=== PATIENT | female | born 1965 | race Caucasian/White ===

== ENCOUNTER → 2023-11-22 08:42 | Outpatient (REF) | payer OTHER, SELFPAY ==
[2023-11-22 12:24] LABS: % Basophils 0.8 % (0-2); % Immature Granulocytes 0.2 % (0-0.5); % Lymphocytes 39.5 % (20.5-51.1); % Monocytes 9.3 % (1.7-9.3); % Neutrophils 49.2 % (42.2-75.2); Absolute Eosinophils 0.1 10^3/uL (0-0.7); Absolute Lymphocytes 1.9 10^3/uL (1.2-3.4); Absolute Monocytes 0.5 10^3/uL (0.1-0.6); Absolute Neutrophils 2.4 10^3/uL (1.4-6.5); Hematocrit 39.9 % (37.0-47.0); Hemoglobin 13.7 g/dL (12.0-16.0); Mean Corp Hgb Conc. 34.3 g/dL (33.0-37.0); Mean Corpuscular Hgb 30.6 pg (27.0-31.0); Mean Corpuscular Volume 89.3 fL (81.0-99.0); Mean Platelet Volume 9.8 fL (7.4-10.4); Nucleated Red Blood Cells % 0 %; Platelet Count 271 10^3/uL (130-400); Red Blood Cell Count 4.47 10^6/uL (4.20-5.40); Red Cell Dist. Width 12.5 % (11.5-14.5); White Blood Cell Count 4.8 10^3/uL (4.8-10.8)
[2023-11-22 12:31] LABS: ALT (SGPT) 12 U/L (0-35); AST (SGOT) 26 U/L (14-36); Albumin 4.5 g/dl (3.5-5.0); Alkaline Phosphatase 52 U/L (38-126); Blood Urea Nitrogen 17 mg/dl (7-17); Calcium 9.8 mg/dl (8.4-10.2); Carbon Dioxide 26 mmol/L (22-30); Chloride 106 mmol/L (98-107); Glucose 92 mg/dl (70-99); HDL Cholesterol 94 mg/dl; LDL Cholesterol, Calculated 143 mg/dl; Potassium 4.1 mmol/L (3.5-5.1); Sodium 139 mmol/L (135-145); Total Bilirubin 1.5 mg/dl (0.2-1.3); Total Cholesterol 247 mg/dl (50-199); Total Protein 7.3 g/dl (6.3-8.2); Triglyceride 53 mg/dl (10-149); Very Low Density Lipoprotein 10 mg/dl (0-30); eGFR > 60.00
[2023-11-22 13:01] LABS: TSH Reflex To Free T4 0.72 uIU/ml (0.47-4.68)
== END ==
LOC: HWLAB 08:42
PROVIDERS: ATTENDING PHYSICIAN Nurse Practitioner
DX: Z00.01 Encounter for general adult medical examination with abnormal findings (principal)
CPT/HCPCS: 36415; 80053; 80061; 84443; 85025

== ENCOUNTER → 2023-12-29 07:03 | Outpatient (REF) | payer OTHER, SELFPAY ==
[2023-12-31 06:50] LABS: HBV Quant by NAAT IU/mL Not Detected; HBV Quant by NAAT Interp Not Detected (Not Detected); HBV Quant by NAAT Log IU/mL Not Detected log IU/mL
== END ==
LOC: WDC 07:03
PROVIDERS: Internal Medicine; ATTENDING PHYSICIAN Nurse Practitioner
DX: K75.9 Inflammatory liver disease, unspecified (principal); L40.50 Arthropathic psoriasis, unspecified; Z51.81 Encounter for therapeutic drug level monitoring; Z12.31 Encounter for screening mammogram for malignant neoplasm of breast
CPT/HCPCS: 36415; 77063; 77067; 87517

== ENCOUNTER → 2024-02-21 07:22 | Outpatient (REF) | payer OTHER, SELFPAY ==
[2024-02-21 09:46] LABS: % Eosinophils 1.9 % (0-6); % Immature Granulocytes 0.4 % (0-0.5); % Lymphocytes 38.6 % (20.5-51.1); % Monocytes 9.1 % (1.7-9.3); Absolute Basophils 0.1 10^3/uL (0-0.2); Absolute Eosinophils 0.1 10^3/uL (0-0.7); Absolute Monocytes 0.5 10^3/uL (0.1-0.6); Absolute Neutrophils 2.5 10^3/uL (1.4-6.5); Hematocrit 41.3 % (37.0-47.0); Hemoglobin 14.1 g/dL (12.0-16.0); Mean Corp Hgb Conc. 34.1 g/dL (33.0-37.0); Mean Corpuscular Hgb 30.9 pg (27.0-31.0); Mean Corpuscular Volume 90.4 fL (81.0-99.0); Mean Platelet Volume 9.4 fL (7.4-10.4); Nucleated Red Blood Cells % 0 %; Platelet Count 276 10^3/uL (130-400); Red Blood Cell Count 4.57 10^6/uL (4.20-5.40); White Blood Cell Count 5.2 10^3/uL (4.8-10.8)
[2024-02-21 10:16] LABS: ALT (SGPT) 20 U/L (0-35); AST (SGOT) 23 U/L (14-36); Albumin 4.6 g/dl (3.5-5.0); Alkaline Phosphatase 48 U/L (38-126); Blood Urea Nitrogen 23 mg/dl (7-17); Calcium 9.8 mg/dl (8.4-10.2); Carbon Dioxide 22 mmol/L (22-30); Chloride 105 mmol/L (98-107); Glucose 94 mg/dl (70-99); Potassium 4.4 mmol/L (3.5-5.1); Sodium 142 mmol/L (135-145); Total Bilirubin 1.5 mg/dl (0.2-1.3); Total Protein 7.1 g/dl (6.3-8.2); eGFR > 60.00
[2024-02-21 10:19] LABS: C-Reactive Protein < 5.00 mg/L (0.0-10.00)
[2024-02-21 10:32] LABS: Erythrocyte Sed Rate 14 mm/hour (0-20)
== END ==
LOC: HWRAD 07:22
PROVIDERS: ATTENDING PHYSICIAN Internal Medicine Gastroenterology; FAMILY PHYSICIAN Nurse Practitioner; REFERRING PHYSICIAN Internal Medicine
DX: K82.4 Cholesterolosis of gallbladder (principal); K76.89 Other specified diseases of liver; M08.80 Other juvenile arthritis, unspecified site; M25.60 Stiffness of unspecified joint, not elsewhere classified; M45.8 Ankylosing spondylitis sacral and sacrococcygeal region; Z51.81 Encounter for therapeutic drug level monitoring
CPT/HCPCS: 36415; 76700; 80053; 85025; 85652; 86140

== ENCOUNTER 2024-04-22 18:40 | Emergency (ER) | payer OTHER, SELFPAY ==
[2024-04-22 18:45] VITALS: BP 119/76
[2024-04-22 19:55] VITALS: BMI 26.1
[2024-04-22] MEDS: DECADRON 10 MG IV (20:32)
[2024-04-22] MEDS: PERCOCET 5/325 1 TABLET PO (20:32)
[2024-04-22] MEDS: TORADOL 15 MG IV (20:33)
[2024-04-22] MEDS: VALIUM INJECTION 2 MG IV (20:33)
[2024-04-22 20:44] VITALS: BP 102/59
[2024-04-22 21:00] VITALS: BP 95/63
[2024-04-22 22:00] VITALS: BP 99/61
--- NOTE | 2024-04-22 22:28 | ED.GENMED ---
History of Present Illness
General
Chief Complaint: Back Pain
Source: patient and spouse
Exam Limitations: none
Time Seen by Provider: 04/22/24 19:15
Nursing documentation reviewed up to this point in time: agreed with
History of Present Illness
History of Present Illness:
Patient with history of chronic lower back pain with the past 5 years, requiring multiple injections and evaluation by various specialist, including pain management, hotel valet attendant, and orthopedic surgeon, presents to ED secondary to worsening right
lower back pain rating down her right leg after receiving her most recent epidural injection. Patient has been taking meloxicam and Tylenol, with minimal relief in symptoms. Denies fever or chills. Denies urinary or bowel incontinence. Denies
loss of sensation or weakness. Denies difficulty with ambulation. Patient has an appointment with new supervisor paint in 2 days.
Past History
Past History
ED Past Medical History: GERD and Other (Ovarian cysts, uterine fibroids)
ED Past Surgical History: Other (Sinus surgery)
Social History
Tobacco: Non-smoker
Alcohol: None
Drug: None
Personal:
Living: with family
Employment: Employed
Family History
Family History: Other (Noncontributory)
Review of Systems
Review of Systems
Allergies reviewed?: Yes
All Other Systems: ROS reviewed and negative except as documented in HPI and ROS
Constitutional: Reports no symptoms
ABD/GI: Reports no symptoms; Denies nausea or vomiting
: Reports no symptoms; Denies incontinence
Musculoskeletal: Reports back pain
Skin: Reports no symptoms
Neurological: Denies weakness
Phy Exam
Physical Exam
Physical Exam:
Physical Exam
General: moderate painful distress, not acutely ill. afebrile
Head: nc/at. eomi
Neck: supple. normal range of motion
Abdomen: normal bowel sounds. not tender.
Back: no midline tenderness. mild right lower back tenderness to palpation at level of L3-4. negative straight leg raise test.
Neuro: alert and oriented. no focal neurological deficits
Skin: no rash
Psychiatric: well kept. interactive and cooperative
Extremities: no edema. no calf tenderness.
Course
Orders/Labs/Results
Orders:
Orders
04/22/24 20:20
Dexamethasone Sod Phosphate [Decadron] 10 mg IV NOW STA
Ketorolac [Toradol] 15 mg IV NOW STA
Oxycodone/Acetaminophen [Percocet 5/325] 1 tablet PO NOW STA
diazePAM [Valium Injection] 2 mg IV NOW STA
Vital Signs
Initial and Last Documented VS:
Initial Vital Signs
Temp Pulse Resp BP Pulse Ox
98.2 F 93 16 119/76 97
04/22/24 18:45 04/22/24 18:45 04/22/24 18:45 04/22/24 18:45 04/22/24 18:45
Last Documented Vital Signs
Temp Pulse Resp BP Pulse Ox
98.2 F 73 18 99/61 98
04/22/24 18:45 04/22/24 22:45 04/22/24 22:45 04/22/24 22:00 04/22/24 22:45
MDM/Problems Addressed
MDM/Problems Addressed:
History and exam consistent with an acute exacerbation of underlying disc disease. Reviewed lumbar spine MRI from 2023, which revealed herniated disc. Otherwise, patient is afebrile, hemodynamically stable, and neurologically intact, without any
exam findings concerning for cauda equina syndrome. Patient reports significant improvement in symptoms after treatment. At this time, patient feels comfortable going home supervisor paint follow-up in 2 days. Patient will be provided
with short course of Valium/Percocet, to be used as needed for pain control. Patient does understand that she is not to take Valium and Percocet at the same time.
*Critical Care Note
Total Time (30-74mins, 75-104mins- exclusive of procedures): Not Applicable
ED Attending Note
-
Portions of this chart may have been created with voice recognition software.� Occasional wrong word or��sound alike� substitutions may have occurred due to the inherent limitations of voice recognition software.
Discharge Plan
Departure
Patient Disposition: Home (Routine Discharge)
Date of Disposition: 04/22/24
Time of Disposition: 22:28
Patient with high blood pressure during this ER visit?: No
Condition: Good
Discharge Problem:
Back pain
Instructions: Low Back Pain (DC)
Prescriptions:
New
diazepam [Valium] 2 mg tablet
2 mg PO TID PRN (Reason: muscle spasm) Qty: 10 0RF
oxycodone-acetaminophen [Percocet] 5-325 mg Tablet
1 tab PO Q6HPRN PRN (Reason: pain) Qty: 10 0RF
No Action
esomeprazole magnesium [Nexium] 40 MG capsule,delayed release(DR/EC)
20 mg PO DAILY
amitriptyline 10 MG tablet
20 mg PO DAILY
famotidine 20 mg tablet
20 mg PO BID Qty: 7 0RF
cetirizine [Zyrtec] 10 mg tablet
10 mg PO BID 4 Days Qty: 8 0RF
epinephrine [EpiPen 2-Berny] 0.3 mg/0.3 mL auto-injector
0.3 mg IM Q5-15M PRN (Reason: anaphylaxis) Qty: 2 0RF
quetiapine 25 mg Tablet
25 mg PO HS
meloxicam 15 mg Tablet
15 mg PO DAILY PRN (Reason: pain )
esomeprazole magnesium 40 mg Capsule,Delayed Release(Dr/Ec)
40 mg PO HS
Gemtesa 75 mg Tablet
75 mg PO DAILY
Referrals:
Mary Kay Hayes MD [Family Provider] -
Activity Restrictions/Additional Instructions:
As discussed, please follow-up with your supervisor paint, as scheduled, on Wednesday for reevaluation. Your prescriptions have been sent electronically to [facility] pharmacy in [place].
Interventions
Interventions:
*Risk Screen - Suicide Last Done: 04/22/24 18:45
*General Assessment Last Done: 04/22/24 18:45
*Neglect/Abuse Screening Last Done: 04/22/24 19:56
ED- Fall Risk Assessment Last Done: 04/22/24 19:56
*ED COVID-19 Vaccine History Last Done: 04/22/24 18:45
*Nursing Disposition Last Done: 04/22/24 22:45
ED-Musculoskeletal Assessment Last Done: 04/22/24 19:56
Discharge Date and Time
Discharge Date/Time: 04/22/24 22:45
Print Language: KINYARWANDA
== END 2024-04-22 22:45 | disposition home or self-care (01) ==
LOC: EMR 18:40
PROVIDERS: EMERGENCY PHYSICIAN Emergency Medicine; FAMILY PHYSICIAN Internal Medicine
DX: M54.9 Dorsalgia, unspecified (principal); K21.9 Gastro-esophageal reflux disease without esophagitis; D25.9 Leiomyoma of uterus, unspecified
CPT/HCPCS: 99282; 96374; 96375

== ENCOUNTER → 2024-05-10 07:51 | Outpatient (REF) | payer OTHER, SELFPAY | LOC: WDC 07:51 | PROVIDERS: ATTENDING PHYSICIAN Nurse Practitioner | DX: R92.2 Inconclusive mammogram (principal) | CPT/HCPCS: 76641 ==

== ENCOUNTER → 2024-07-03 09:20 | Outpatient (REF) | payer OTHER, SELFPAY ==
[2024-07-03 11:14] LABS: % Basophils 0.8 % (0-2); % Eosinophils 1.4 % (0-6); % Immature Granulocytes 0.2 % (0-0.5); % Lymphocytes 39.8 % (20.5-51.1); % Monocytes 9.1 % (1.7-9.3); % Neutrophils 48.7 % (42.2-75.2); Absolute Eosinophils 0.1 10^3/uL (0-0.7); Absolute Monocytes 0.5 10^3/uL (0.1-0.6); Absolute Neutrophils 2.4 10^3/uL (1.4-6.5); Hematocrit 40.9 % (37.0-47.0); Hemoglobin 13.6 g/dL (12.0-16.0); Mean Corp Hgb Conc. 33.3 g/dL (33.0-37.0); Mean Corpuscular Hgb 30.1 pg (27.0-31.0); Mean Corpuscular Volume 90.5 fL (81.0-99.0); Mean Platelet Volume 9.7 fL (7.4-10.4); Nucleated Red Blood Cells % 0 %; Platelet Count 278 10^3/uL (130-400); Red Blood Cell Count 4.52 10^6/uL (4.20-5.40); Red Cell Dist. Width 11.9 % (11.5-14.5)
[2024-07-03 12:12] LABS: ALT (SGPT) 14 U/L (0-35); AST (SGOT) 22 U/L (14-36); Albumin 4.5 g/dl (3.5-5.0); Alkaline Phosphatase 50 U/L (38-126); Blood Urea Nitrogen 21 mg/dl (7-17); Calcium 9.7 mg/dl (8.4-10.2); Carbon Dioxide 29 mmol/L (22-30); Chloride 103 mmol/L (98-107); Glucose 86 mg/dl (70-99); HDL Cholesterol 77 mg/dl; LDL Cholesterol, Calculated 140 mg/dl; Potassium 4.5 mmol/L (3.5-5.1); Sodium 139 mmol/L (135-145); Total Bilirubin 1.2 mg/dl (0.2-1.3); Total Cholesterol 228 mg/dl (50-199); Triglyceride 56 mg/dl (10-149); Very Low Density Lipoprotein 11 mg/dl (0-30); eGFR > 60.00
[2024-07-03 12:47] LABS: TSH Reflex To Free T4 0.71 uIU/ml (0.47-4.68)
== END ==
LOC: HWLAB 09:20
DX: E78.2 Mixed hyperlipidemia (principal); N28.9 Disorder of kidney and ureter, unspecified; N30.10 Interstitial cystitis (chronic) without hematuria; K82.4 Cholesterolosis of gallbladder; K76.89 Other specified diseases of liver
CPT/HCPCS: 36415; 80053; 80061; 84443; 85025

== ENCOUNTER 2024-09-10 09:58 | Emergency (ER) | payer OTHER, SELFPAY ==
[2024-09-10 10:00] VITALS: BP 130/78
--- NOTE | 2024-09-10 10:42 | ED.GENMED ---
History of Present Illness
General
Chief Complaint: Fall
Source: patient
Exam Limitations: none
Time Seen by Provider: 09/10/24 10:12
History of Present Illness
History of Present Illness:
59yoF with a history of migraines, GERD, and chronic back pain presenting for evaluation after a fall around 9:30 AM this morning. Patient was standing on a chair getting something from the cupboard when the chair leg broke. She fell and struck
her upper abdomen/lower rib area against the edge of the chair. There was no head strike or loss of consciousness. Patient is presenting with rib pain as well as upper abdominal pain. She spoke with her friend who works at urgent care and she was
told to go to the ED to rule out internal bleeding. No shortness of breath. She does not take any blood thinners.
Past History
Past History
ED Past Medical History: GERD and Other (Ovarian cysts, uterine fibroids)
ED Past Surgical History: Other (Sinus surgery)
Social History
Tobacco: Non-smoker
Alcohol: None
Drug: None
Personal:
Living: with family
Employment: Employed
Family History
Family History: Other (Noncontributory)
Phy Exam
General Physical Exam
General Presentation: well appearing and no apparent distress
General age: appears stated age
General Skin: warm and dry
General Habitus: normal
General Mental: alert
ENT Exam
ENT Exam: normocephalic
Cardiovascular Exam
Cardiovascular Exam: regular rate/rhythm
Pulmonary Exam
Pulmonary Exam: lungs clear, no respiratory distress, no rales, no crackles, no rhonchi, no wheezing and other
Gastrointestinal Exam
Gastrointestinal Exam: soft, non distended and other (+Tenderness in anterior lower ribcage bilaterally and epigastric region. No ecchymosis, skin changes, or crepitus. )
Neurological Exam
Neurological Exam: alert
[place] Coma Scale
Eye Opening: Spontaneous
Verbal Response: Oriented
Motor Response: Obeys Commands
GCS Total Score: 15
Musculoskeletal Exam
Musculoskeletal Exam: other (L knee: Small developing contusion to anterior knee. ROM intact. )
Skin Exam
Skin Exam: normal color and warm/dry
Psychiatric Exam
Psychiatric Exam: normal mood/affect
Course
Orders/Labs/Results
Orders:
Orders
09/10/24 10:33
CT Abd/pelvis W Iv Cont Urgent
Comment:
Reason For Exam: Upper abd pain/lower rib pain s/p fall
Acetaminophen [Tylenol] 1,000 mg PO NOW STA
CR Chest - 2 Views Urgent
Comment:
Reason For Exam: lower rib pain s/p fall
CR Knee - Left 4 Or More View* Urgent
Comment:
Reason For Exam: injury
09/10/24 10:40
Complete Blood Count/With Diff Urgent
Comprehensive Metabolic Panel Urgent
09/10/24 11:14
Acetaminophen [Tylenol] 1,000 mg .ROUTE .STK-MED ONE
Abnormal Lab Results
09/10/24
10:40
Monocytes % 10.0 H %
(1.7-9.3)
BUN 29 H mg/dl
(7-17)
09/10/24 10:40
09/10/24 10:40
Vital Signs
Initial and Last Documented VS:
Initial Vital Signs
Temp Pulse Resp BP Pulse Ox
97.5 F 92 16 130/78 98
09/10/24 10:00 09/10/24 10:00 09/10/24 10:00 09/10/24 10:00 09/10/24 10:00
Last Documented Vital Signs
Temp Pulse Resp BP Pulse Ox
97.5 F 92 16 130/78 98
09/10/24 10:00 09/10/24 10:00 09/10/24 10:00 09/10/24 10:00 09/10/24 10:00
MDM/Problems Addressed
Differential Diagnosis Includes:
59yoF here with lower rib/upper abd pain after falling off a chair shortly prior to arrival. VSS. Patient is well-appearing no acute distress. There is tenderness on exam without ecchymosis or crepitus. Breath sounds equal bilaterally.
Differential diagnosis includes but is not limited to: Contusion, soft tissue injury, fracture, liver laceration
Initial ED plan: Check basic labs, CXR, L knee x-rays, and CT abdomen. Tylenol for pain.
*Critical Care Note
Total Time (30-74mins, 75-104mins- exclusive of procedures): Not Applicable
Update Note
Update Note:
Labs unremarkable. Imaging is negative for traumatic injuries. Scattered hepatic cysts noted on CT. Patient has a known history of this and follows with gastroenterology. She was given a copy of the radiology report. Supportive care discussed.
Advised follow-up with PCP and ED return precautions reviewed. Patient in agreement with plan and was discharged in stable condition.
ED Attending Note
-
Portions of this chart may have been created with voice recognition software.� Occasional wrong word or��sound alike� substitutions may have occurred due to the inherent limitations of voice recognition software.
Discharge Plan
Departure
Patient Disposition: Home (Routine Discharge)
Date of Disposition: 09/10/24
Time of Disposition: 13:50
Patient with high blood pressure during this ER visit?: No
Discharge Problem:
Traumatic injury of rib, Accidental fall from chair
Instructions: Rib injury in adults
Prescriptions:
No Action
esomeprazole magnesium [Nexium] 40 MG capsule,delayed release(DR/EC)
20 mg PO DAILY
amitriptyline 10 MG tablet
20 mg PO DAILY
famotidine 20 mg tablet
20 mg PO BID Qty: 7 0RF
cetirizine [Zyrtec] 10 mg tablet
10 mg PO BID 4 Days Qty: 8 0RF
epinephrine [EpiPen 2-Berny] 0.3 mg/0.3 mL auto-injector
0.3 mg IM Q5-15M PRN (Reason: anaphylaxis) Qty: 2 0RF
quetiapine 25 mg Tablet
25 mg PO HS
meloxicam 15 mg Tablet
15 mg PO DAILY PRN (Reason: pain )
esomeprazole magnesium 40 mg Capsule,Delayed Release(Dr/Ec)
40 mg PO HS
Gemtesa 75 mg Tablet
75 mg PO DAILY
diazepam [Valium] 2 mg tablet
2 mg PO TID PRN (Reason: muscle spasm) Qty: 10 0RF
oxycodone-acetaminophen [Percocet] 5-325 mg Tablet
1 tab PO Q6HPRN PRN (Reason: pain) Qty: 10 0RF
Referrals:
Wilber Hector CRNP [Family Provider] -
Activity Restrictions/Additional Instructions:
Your imaging was negative for any injuries.
Apply ice to affected area. Take Tylenol and ibuprofen for pain.
Please follow-up with your family doctor. Return to the ER with any new or worsening symptoms.
Interventions
Interventions:
*Risk Screen - Suicide Last Done: 09/10/24 10:00
*General Assessment Last Done: 09/10/24 14:10
*Neglect/Abuse Screening Last Done: 09/10/24 10:00
*ED- Fall Risk Assessment Last Done: 09/10/24 14:10
*ED COVID-19 Vaccine History Last Done: 09/10/24 14:10
*Nursing Disposition Last Done: 09/10/24 14:10
ED-Musculoskeletal Assessment Last Done: 09/10/24 14:39
ED- Neurological Assessment Last Done: 09/10/24 14:39
ED-Skin Assessment Last Done: 09/10/24 14:39
Discharge Date and Time
Discharge Date/Time: 09/10/24 14:40
Print Language: MALTESE
[2024-09-10 10:44] LABS: % Basophils 0.9 % (0-2); % Eosinophils 1.8 % (0-6); % Immature Granulocytes 0.2 % (0-0.5); % Lymphocytes 33.9 % (20.5-51.1); % Neutrophils 53.2 % (42.2-75.2); Absolute Basophils 0.1 10^3/uL (0-0.2); Absolute Eosinophils 0.1 10^3/uL (0-0.7); Absolute Lymphocytes 1.9 10^3/uL (1.2-3.4); Absolute Monocytes 0.6 10^3/uL (0.1-0.6); Absolute Neutrophils 2.9 10^3/uL (1.4-6.5); Hematocrit 39.9 % (37.0-47.0); Hemoglobin 13.7 g/dL (12.0-16.0); Mean Corp Hgb Conc. 34.3 g/dL (33.0-37.0); Mean Corpuscular Hgb 30.8 pg (27.0-31.0); Mean Corpuscular Volume 89.7 fL (81.0-99.0); Mean Platelet Volume 8.9 fL (7.4-10.4); Nucleated Red Blood Cells % 0 %; Platelet Count 250 10^3/uL (130-400); Red Blood Cell Count 4.45 10^6/uL (4.20-5.40); White Blood Cell Count 5.5 10^3/uL (4.8-10.8)
[2024-09-10 11:05] LABS: ALT (SGPT) 17 U/L (0-35); AST (SGOT) 22 U/L (14-36); Albumin 3.8 g/dl (3.5-5.0); Alkaline Phosphatase 49 U/L (38-126); Blood Urea Nitrogen 29 mg/dl (7-17); Calcium 9.4 mg/dl (8.4-10.2); Carbon Dioxide 26 mmol/L (22-30); Chloride 107 mmol/L (98-107); Glucose 90 mg/dl (70-99); Potassium 4.5 mmol/L (3.5-5.1); Sodium 140 mmol/L (135-145); Total Bilirubin 0.9 mg/dl (0.2-1.3); Total Protein 6.5 g/dl (6.3-8.2); eGFR > 60.00
[2024-09-10] MEDS: TYLENOL 1000 MG PO (11:15)
== END 2024-09-10 14:40 | disposition home or self-care (01) ==
LOC: EMR 09:58
PROVIDERS: Physician Assistant; EMERGENCY PHYSICIAN Emergency Medicine
DX: S29.9XXA Unspecified injury of thorax, initial encounter (principal); R10.10 Upper abdominal pain, unspecified; W22.8XXA Striking against or struck by other objects, initial encounter; K21.9 Gastro-esophageal reflux disease without esophagitis; G89.29 Other chronic pain; K76.89 Other specified diseases of liver
CPT/HCPCS: 99284; 71046; 73564; 74177; 80053; 85025; Q9967

== ENCOUNTER → 2024-09-22 08:55 | Outpatient (REF) | payer OTHER, SELFPAY ==
[2024-09-22 12:13] LABS: Vitamin D, 25-OH*** 41.7 ng/mL (30-80)
[2024-09-22 12:31] LABS: Ferritin 44.6 ng/ml (11.1-264.0)
== END ==
LOC: HWLAB 08:55
PROVIDERS: ATTENDING PHYSICIAN Dermatology MOHS-Micrographic Surgery
DX: Z79.899 Other long term (current) drug therapy (principal); L65.0 Telogen effluvium
CPT/HCPCS: 36415; 82306; 82728

== ENCOUNTER → 2024-12-29 07:00 | Outpatient (REF) | payer OTHER, SELFPAY | LOC: WDC 07:00 | PROVIDERS: ATTENDING PHYSICIAN Obstetrics & Gynecology | DX: Z12.31 Encounter for screening mammogram for malignant neoplasm of breast (principal) | CPT/HCPCS: 77063; 77067 ==

== ENCOUNTER → 2025-01-04 08:57 | Outpatient (REF) | payer OTHER, SELFPAY ==
[2025-01-04 13:04] LABS: Hematocrit 40.7 % (37.0-47.0); Hemoglobin 13.5 g/dL (12.0-16.0); Mean Corp Hgb Conc. 33.2 g/dL (33.0-37.0); Mean Corpuscular Volume 90.6 fL (81.0-99.0); Nucleated Red Blood Cells % 0 %; Platelet Count 271 10^3/uL (130-400); Red Cell Dist. Width 12.1 % (11.5-14.5)
[2025-01-04 13:30] LABS: ALT (SGPT) 17 U/L (0-35); AST (SGOT) 22 U/L (14-36); Albumin 4.6 g/dl (3.5-5.0); Alkaline Phosphatase 40 U/L (38-126); Blood Urea Nitrogen 18 mg/dl (7-17); Calcium 9.3 mg/dl (8.4-10.2); Carbon Dioxide 26 mmol/L (22-30); Chloride 106 mmol/L (98-107); Glucose 86 mg/dl (70-99); HDL Cholesterol 67 mg/dl; LDL Cholesterol, Calculated 129 mg/dl; Potassium 4.3 mmol/L (3.5-5.1); Sodium 140 mmol/L (135-145); Total Protein 7.2 g/dl (6.3-8.2); Very Low Density Lipoprotein 14 mg/dl (0-30); eGFR > 60.00
== END ==
LOC: HWRAD 08:57
DX: M79.671 Pain in right foot (principal); Z00.01 Encounter for general adult medical examination with abnormal findings
CPT/HCPCS: 36415; 73630; 80053; 80061; 84443; 85025

== ENCOUNTER 2025-03-08 06:21 | Day surgery (SDC) | payer OTHER, SELFPAY | END 2025-03-08 12:33 | disposition home or self-care (01) | LOC: GI 06:21 | PROVIDERS: ATTENDING PHYSICIAN Internal Medicine Gastroenterology | DX: Z12.11 Encounter for screening for malignant neoplasm of colon (principal); Z86.0100 Personal history of colon polyps, unspecified; K64.9 Unspecified hemorrhoids | CPT/HCPCS: G0105 ==

== ENCOUNTER → 2025-03-09 07:58 | Outpatient (REF) | payer OTHER, SELFPAY | LOC: RAD 07:58 | DX: Z78.0 Asymptomatic menopausal state (principal) | CPT/HCPCS: 77080 ==

== ENCOUNTER → 2025-03-23 07:34 | Outpatient (REF) | payer OTHER, SELFPAY | LOC: RAD 07:34 | PROVIDERS: ATTENDING PHYSICIAN Internal Medicine Gastroenterology | DX: K82.4 Cholesterolosis of gallbladder (principal); N28.9 Disorder of kidney and ureter, unspecified | CPT/HCPCS: 76700; 76775 ==

== ENCOUNTER 2025-04-10 06:36 | Day surgery (SDC) | payer OTHER, SELFPAY ==
[2025-04-10] VITALS (11 sets, daily range): BP systolic 93–115; BP diastolic 47–68; BMI 23.5
[2025-04-10] MEDS: NORMOSOL-R/PLASMALYTE-A 1000 IV (10:25)
[2025-04-10] MEDS: DILAUDID 0.5 MG IV (12:37)
[2025-04-10] MEDS: ZOFRAN 4 MG IV (14:01)
== END 2025-04-10 16:52 | disposition home or self-care (01) ==
LOC: SDS 06:36
PROVIDERS: ATTENDING PHYSICIAN Obstetrics & Gynecology
DX: N81.10 Cystocele, unspecified (principal); N81.6 Rectocele
CPT/HCPCS: 57260; J1580

== ENCOUNTER 2025-04-11 03:30 | Emergency (ER) | payer OTHER, SELFPAY ==
[2025-04-11 03:34] VITALS: BP 102/74
[2025-04-11 03:48] VITALS: BP 116/69
[2025-04-11 03:54] VITALS: BMI 23.4
[2025-04-11] MEDS: NSS 1000 IV (04:29)
--- NOTE | 2025-04-11 04:35 | ED.GENMED ---
History of Present Illness
General
Chief Complaint: Urinary Symptoms
Source: patient
Exam Limitations: none
Time Seen by Provider: 04/11/25 03:52
Nursing documentation reviewed up to this point in time: agreed with
History of Present Illness
History of Present Illness:
59-year-old female with a past medical history of GERD, ovarian cyst, interstitial cystitis, ureterovaginal pelvic prolapse presents to the ER today with concerns of difficulty with urinary flow from the catheter. Patient reports that she had
bladder surgery for bladder prolapse yesterday. She had a retropubic mid ureteral sling done with posterior colporrhaphy and perineoplasty. She reports that the catheter was draining well postprocedure and then she woke up early this morning with
a sensation to urinate. She reports that she looked in the bag was not draining. When she stood up, the bag started to drain. She reports that she has had some vaginal bleeding postprocedure but denies any blood in the urine. Patient also
describes an episode of lightheadedness occurring when she stood which is not unusual for her but felt like it was more prominent today. She denies chest pain or shortness of breath.
Past History
Past History
ED Past Medical History: GERD and Other (Ovarian cysts, uterine fibroids)
ED Past Surgical History: Other (Sinus surgery)
Social History
Tobacco: Non-smoker
Alcohol: None
Drug: None
Personal:
Living: with family
Employment: Employed
Family History
Family History: Other (Noncontributory)
Review of Systems
Review of Systems
All Other Systems: ROS reviewed and negative except as documented in HPI and ROS
Phy Exam
Physical Exam
Physical Exam:
General: Patient is well appearing and in no acute distress; non-toxic
Skin: Warm and dry, no rashes or lesions
Head: Normocephalic, atraumatic
Eyes: Sclera non-icteric. EOMs intact.
Cardiac: Regular rate and rhythm, no murmur
Peripheral Vascular: No lower extremity swelling or edema
Pulm: Normal respiratory effort, no wheezes, rales, or rhonchi
Abdomen: No abdominal tenderness to palpation
Genitourinary: Urinary catheter in place
Neuro: CN II-XII intact, no focal neurologic deficits.
Psychiatric: Appropriate mood and affect.
Course
Orders/Labs/Results
Orders:
Orders
04/11/25 04:06
Complete Blood Count/With Diff Urgent
Comprehensive Metabolic Panel Urgent
04/11/25 04:27
0.9% Sodium Chloride 1000 ml [Nss] 1,000 ml IV BOLUS
04/11/25 04:28
Electrocardiogram (*1) Urgent
Reason for Study: Fatigue / Weakness
04/11/25 05:12
Ketorolac [Toradol] 15 mg IV NOW STA
Abnormal Lab Results
04/11/25
04:06
Absolute Neuts (auto) 8.0 H 10^3/uL
(1.4-6.5)
Absolute Monos (auto) 0.9 H 10^3/uL
(0.1-0.6)
Lymphocytes % 14.4 L %
(20.5-51.1)
Sodium 131 L mmol/L
(135-145)
Glucose 114 H mg/dl
(70-99)
04/11/25 04:06
04/11/25 04:06
Vital Signs
Initial and Last Documented VS:
Initial Vital Signs
Temp Pulse Resp BP Pulse Ox
97.6 F 91 18 102/74 100
04/11/25 03:34 04/11/25 03:34 04/11/25 03:34 04/11/25 03:34 04/11/25 03:34
Last Documented Vital Signs
Temp Pulse Resp BP Pulse Ox
98.2 F 82 16 110/76 99
04/11/25 07:23 04/11/25 07:23 04/11/25 07:23 04/11/25 07:23 04/11/25 07:23
MDM/Problems Addressed
Differential Diagnosis Includes:
urinary catheter dysfunction
MDM/Problems Addressed:
59-year-old female presents to the ER today with concerns of issues with her urinary catheter. She had a recent surgery done for pelvic organ prolapse. This was uncomplicated. She reports that this evening there was a delay in drainage from the
catheter but the catheter seem to drain again when she stood. Patient is supposed to see Dr. Patel later today for voiding trial. I spoke to Dr. Patel he was okay with me taking out the catheter and trialing her voiding here. She initially
was able to void and felt no sensation of retention then when she had to use the bathroom again, she felt sensation to void and could not go. She was retaining 400. Updated Dr. Patel will place catheter again and patient will call the office as
an outpatient. Labs reviewed, CBC and CMP unremarkable. Mild hyponatremia noted. ECG shows first-degree AV block that she has had this present on prior ECGs. Patient stable for discharge.
Chronic conditions affecting care:
GERD, ovarian cyst, pelvic organ prolapse, anxiety, depression
*Pulse Oximetry
SaO2: 100
Oxygen Mode of Delivery: Room air
Patient hypoxic: no
*Critical Care Note
Total Time (30-74mins, 75-104mins- exclusive of procedures): Not Applicable
Data Reviewed
Review of Other/Old Records Reveals: Records (Reviewed operative report from 04/10/2025, reviewed history and physical from 04/10/2025)
Source: patient and records
ED Attending Note
-
Portions of this chart may have been created with voice recognition software.� Occasional wrong word or��sound alike� substitutions may have occurred due to the inherent limitations of voice recognition software.
Discharge Plan
Departure
Patient Disposition: Home (Routine Discharge)
Date of Disposition: 04/11/25
Time of Disposition: 05:51
Patient with high blood pressure during this ER visit?: Yes
Condition: Good
Discharge Problem:
Urinary catheter dysfunction, Encounter for urinary catheter
Instructions: Urinary catheter placement
Prescriptions:
No Action
esomeprazole magnesium [Nexium] 40 MG capsule,delayed release(DR/EC)
40 mg PO DAILY
quetiapine 25 mg Tablet
25 mg PO HS
meloxicam 15 mg Tablet
15 mg PO DAILY PRN (Reason: pain )
cetirizine [Zyrtec] 10 mg tablet
10 mg PO PRN PRN (Reason: allergy)
famotidine 20 mg tablet
40 mg PO PRN PRN (Reason: gerd)
buspirone [BuSpar] 5 mg Tablet
5 mg PO DAILY
pregabalin [Lyrica] 50 mg Capsule
100 mg PO HS
mirabegron [Myrbetriq] 50 mg Tablet Extended Release 24 Hr
50 mg PO DAILY
Calcium Magnesium plus D
1,200 mg PO DAILY
Referrals:
UNKNOWN,NO INTERVIEW [Family Provider]
Activity Restrictions/Additional Instructions:
Please call the Dr. Patel's office to schedule follow-up appointment. Please continue to stay well-hydrated and monitor your symptoms.
You were retaining a lot of urine and you had to have catheter placed back in.
PLEASE RETURN TO ER SHOULD YOU DEVELOP CHEST PAIN SHORTNESS OF BREATH, EXCESSIVE BLEEDING, FAINTING SPELLS, OR ANY OTHER SIGNS OR SYMPTOMS WORRISOME TO YOU.
Interventions
Interventions:
*Risk Screen - Suicide Last Done: 04/11/25 03:34
*General Assessment Last Done: 04/11/25 03:54
*Neglect/Abuse Screening Last Done: 04/11/25 03:54
*ED- Fall Risk Assessment Last Done: 04/11/25 03:54
*ED COVID-19 Vaccine History Last Done: 04/11/25 03:54
*ED Influenza Vaccine History Last Done: 04/11/25 03:54
*Nursing Disposition Last Done: 04/11/25 07:23
ED-Female Genitourinary Assessment Last Done: 04/11/25 03:54
Discharge Date and Time
Discharge Date/Time: 04/11/25 07:24
Print Language: [place]
[2025-04-11 04:42] LABS: ALT (SGPT) 18 U/L (0-35); AST (SGOT) 20 U/L (14-36); Albumin 4.2 g/dl (3.5-5.0); Alkaline Phosphatase 47 U/L (38-126); Blood Urea Nitrogen 12 mg/dl (7-17); Calcium 9.4 mg/dl (8.4-10.2); Carbon Dioxide 26 mmol/L (22-30); Chloride 101 mmol/L (98-107); Estimated Creatinine Clearance 81 ml/min; Glucose 114 mg/dl (70-99); Potassium 4.3 mmol/L (3.5-5.1); Sodium 131 mmol/L (135-145); Total Protein 7.2 g/dl (6.3-8.2); eGFR > 60.00
[2025-04-11 04:50] LABS: Hematocrit 38.6 % (37.0-47.0); Hemoglobin 13.1 g/dL (12.0-16.0); Mean Corp Hgb Conc. 33.9 g/dL (33.0-37.0); Mean Corpuscular Volume 87.3 fL (81.0-99.0); Platelet Count 273 10^3/uL (130-400); Red Cell Dist. Width 11.9 % (11.5-14.5)
[2025-04-11 05:00] VITALS: BP 102/60
[2025-04-11] MEDS: TORADOL 15 MG IV (05:20)
[2025-04-11 06:34] LABS: Nucleated Red Blood Cells % 0 %
[2025-04-11 07:23] VITALS: BP 110/76
== END 2025-04-11 07:24 | disposition home or self-care (01) ==
LOC: EMR 03:30
PROVIDERS: Physician Assistant; EMERGENCY PHYSICIAN Student in an Organized Health Care Education/Training Program
DX: T83.091A Other mechanical complication of indwelling urethral catheter, initial encounter (principal); Y73.2 Prosthetic and other implants, materials and accessory gastroenterology and urology devices associated with adverse incidents; E87.1 Hypo-osmolality and hyponatremia; I44.0 Atrioventricular block, first degree; R03.0 Elevated blood-pressure reading, without diagnosis of hypertension; N30.10 Interstitial cystitis (chronic) without hematuria; K21.9 Gastro-esophageal reflux disease without esophagitis; F41.9 Anxiety disorder, unspecified; F32.A Depression, unspecified
CPT/HCPCS: 99284; 96374; 96361; 51702; 80053; 85025; 93005

== ENCOUNTER → 2025-05-02 10:52 | Outpatient (REF) | payer OTHER, SELFPAY | LOC: CLAB 10:52 | PROVIDERS: ATTENDING PHYSICIAN Physician Assistant | DX: N39.0 Urinary tract infection, site not specified (principal) | CPT/HCPCS: 87086 ==